=== PATIENT | male | born 2005 | race American Indian/Alaskan Native ===

== ENCOUNTER 2023-10-31 12:42 | Emergency (ER) | payer OTHER ==
[2023-10-31] MEDS ORDERED: SODIUM CHLORIDE 1,000 ML IV STA (12:59)
[2023-10-31 13:27] LABS: HEMATOCRIT 49.7 % (35.4-49); HEMOGLOBIN 16.5 G/dL (11.7-16.9); MCH 27.5 pg (25.7-33.7); MCHC 33.1 g/dl (32.0-35.9); MEAN CELL VOLUME 82.9 fl (80-96); MEAN PLT VOLUME 9.2 fl (7.5-11.1); PLATELET COUNT 170.6 10^3/uL (134-434); RDW 15.3 % (11.9-15.9); WHITE BLOOD COUNT 7.6 10^3/uL (4.0-10.8)
[2023-10-31 13:51] LABS: ALBUMIN 4.8 g/dl (3.4-5.0); BILIRUBIN,TOTAL 0.5 mg/dl (0.2-1); CALCIUM 9.8 mg/dl (8.5-10.1); POTASSIUM 4.5 mmol/L (3.5-5.1); TOT PROT 7.5 g/dl (6.4-8.2)
[2023-10-31] MEDS ORDERED: LOPERAMIDE HCL 2 MG CAPSULE PO ONE (14:01)
[2023-10-31] MEDS ORDERED: LOPERAMIDE HCL 2 MG CAPSULE ONE (14:32)
[2023-10-31 14:53] VITALS: BP 136/84; PULSE 85; RESP 16; TEMP 98; BMI 35.4
== END 2023-10-31 15:22 | disposition home or self-care (01) ==
LOC: FER 12:42
PROC: 3E0337Z Introduction of Electrolytic and Water Balance Substance into Peripheral Vein, Percutaneous Approach (ICD-10-PCS; principal; 2023-10-31)
DX: R19.7 Diarrhea, unspecified (principal); R50.9 Fever, unspecified; Z20.822 Contact with and (suspected) exposure to COVID-19
CPT/HCPCS: 0241U-QW; 36415; 80053; 85027; 99284-25